=== PATIENT | female | born 1990 | race Two or more races ===

== ENCOUNTER 2021-04-18 04:44 | Emergency (ER) | payer SELFPAY ==
[~2021-04-18] VITALS: Ht 170.2 cm; Wt 72.0 kg
--- NOTE | 2021-04-18 05:08 | NUR ---
Patient reports she began noticing a small area of rash and itchiness on her arm 04/17/21 at approx 0700. Patient reports the rash and itchiness has spread. She also reports she took 50mg of Benadryl at approx 2145 04/17/21 with some relief for approx 3-4 hours.
[2021-04-18] MEDS ORDERED: DIPHENHYDRAMINE 50 MG CAPSULE ONE (05:24)
[2021-04-18] MEDS ORDERED: DIPHENHYDRAMINE 50 MG CAPSULE PO ONE (05:30)
--- NOTE | 2021-04-18 07:03 | NUR ---
TOOK REPORT FROM Mayra Avila RN, ASSUME CARE AT THIS TIME.
[2021-04-18] MEDS ORDERED: ONDANSETRON ODT 8 MG ONE (07:22)
[2021-04-18] MEDS ORDERED: EPINEPHRINE 1 MG/ML, 1ML ONE (07:22)
[2021-04-18] MEDS ORDERED: ONDANSETRON ODT 8 MG PO ONE (07:30)
[2021-04-18] MEDS ORDERED: EPINEPHRINE 1 MG/ML, 1ML SQ ONE (07:30)
--- NOTE | 2021-04-18 07:44 | NUR ---
PT IN BED IN GOWN ON [employer], SPO2, BP Q 30 MIN, SIDE RAILS UP X2, FRIEND AT BEDSIDE. PT ATE CRACKERS AND JUICE. 2 WARM BLANKETS GIVEN. PT SHAKING IN BED POST MEDS, REPORTS THAT SHE IS NOT FEELING WHELL (SHAKING/RESTLESS). PT EDUCATED THAT EPI WILL MAKE HER FEEL LIKE THIS. ME NOTIFIED. PT HAS NPO NAUSEA AT THIS TIME
[2021-04-18 08:07] VITALS: BP 113/49
== END 2021-04-18 09:20 | disposition home or self-care (01) ==
LOC: ED 09:05
DX: O26.891 Other specified pregnancy related conditions, first trimester (principal); L50.0 Allergic urticaria; R21 Rash and other nonspecific skin eruption; Z3A.01 Less than 8 weeks gestation of pregnancy
CPT/HCPCS: 96372; 99284; J0171; J7512; Q0162